=== PATIENT | female | born 1980 | race Two or more races ===

== ENCOUNTER 2019-11-25 08:52 | Emergency (ER) | payer SELFPAY ==
[~2019-11-25] VITALS: Ht 170.2 cm; Wt 81.8 kg
[2019-11-25 09:02] VITALS: BP 120/64
== END 2019-11-25 09:18 | disposition home or self-care (01) ==
LOC: ER 08:53
DX: R19.7 Diarrhea, unspecified (principal); Z72.89 Other problems related to lifestyle; Z98.890 Other specified postprocedural states
CPT/HCPCS: 99281